=== PATIENT | female | born 1990 | race Caucasian/White ===

== ENCOUNTER 2024-11-30 08:49 | Emergency (ER) | payer BC ==
--- OUTSIDE RECORDS SUMMARY | 2024-11-30 08:54 | XMS REPORT | Continuity of Care Document ---
Author Name Unknown Address [address] [facility] [address] [place] [address] [facility] [place] Address [address] [facility]. [address] [place] [address] Care Team Providers Care Cs Associate Name Role Phone PCP, PATIENT DOES NOT HAVE A Primary Care Physic sheila Unavailable TATE LOYA Attending Clinician Unavailable TATE LOYA Attending Clinician Unavailable SHERYL REID Attending Clinician Unavailable Robina Castrejon NP Attending Clinician [phone] ADORE ROBISON Attending Clinician Unavailable Doctor Unassigned, Whitlash Attending Clinician U patricio Garcia, Ang - Db Attending Clinician Unavailable Tate Loya MD Attending Clinician [phone] Dolores Nagy Attending Clinician + [phone] Unknown, Attending Attending Clinician Unavailab DOLORES Perdue Attending Clinician Unavailab Nelida Felder MA Attending Clinician Unavailab MARILIA De La Vega Attending Clinician Unavailable Marilia Mcclain PA-C Attending Clinician [phone] Unknown, Attending Attending Clinician Unavailab le Doctor Unassigned, Whitlash Attending Clinician U patricio Nurse, [facility] Attending Clinician Un available Mandie Fontana MD Attending Clinician [phone] Fonpamela SINHA CRNA R Attending Clinician [phone] Only, Adc Test Attending Clinician Unavailable Salina Fields MD Attending Clinician [phone] SALINA FIELDS Attending Clinician Unavailabl e 2, Adc Lab Attending Clinician Unavailable Ultrasound, Adc Mfm Attending Clinician Lito Atkinson MD, Escobar Attending Clinician + Ultrasound, Ang-Mfm Attending Clinician Lito Brown MD, Sophia Bradford Attending Clinician [phone] [email or web address] Attending Clinician Lito drake LOYA, TATE CAM Admitting Clinician Unavailable LOYA, TATE CAM Admitting Clinician Unavailable [email or web address] Admitting Clinician Lito drake Payers Payer Name Policy Type Policy Number Effective Date Expirati on Date Source BLUE ESSENTIALS O [id number] 00:00:[place] [id number] 2019 00:00:00 Problems Condition Name Condition Details Condition Category Status Onset Date Resolution Date Last Treatment Date Treating Clinician Comments Source Gastroesop hageal reflux disease, unspecifie d whether esophagiti s present Gastroesop hageal reflux disease, unspecifie d whether esophagiti s present Disease Active 2020-04 00:00: 00 [facility] Generalize d anxiety disorder Generalize d anxiety disorder Disease Active 9- 00:00: 00 [facility] Obesity (BMI 30-39.9) Obesity (BMI 30-39.9) Disease Active 5-13 00:00: 00 [facility] Non-intrac table vomiting with nausea, unspecifie d vomiting type Non-intrac table vomiting with nausea, unspecifie d vomiting type Diagnosis Active [facility] Sinus problem Sinus problem Problem Active [facility] Diarrhea, unspecifie d type Diarrhea, unspecifie d type Diagnosis Active Common [facility] Depression Depression Problem Active C ommon [facility] Wheezing Wheezing Problem Active Commo n [facility] Anxiety Anxiety Problem Active [facility] Migraines Migraines Problem Active Com mon [facility] Irritable bowel Irritable bowel Problem Active [facility] Seasonal allergies Seasonal allergies Problem Active [facility] Reflux Reflux Problem Active [facility] Abdominal pain, unspecifie d abdominal location Abdominal pain, unspecifie d abdominal location Diagnosis Active [facility] Fever blister Fever blister Diagnosis Active [facility] Depression with anxiety Depression with anxiety Problem Active [facility] hypertensi on hypertensi on Disease Resolve d 2021-0 1-06 00:00: 00 2021-05-26 00:00:00 2021-05-26 13:44:06 [facility] Liveborn , of monson , born in hospital by vaginal delivery Liveborn infant, of monson , born in hospital by vaginal delivery Disease Resolve d 2021-0 1-05 00:00: 00 2021-05-26 00:00:00 2021-05-26 13:44:06 [facility] 39 weeks gestation of 39 weeks gestation of Disease Resolve d 0 1-04 00:00: 00 2021-05-26 00:00:00 2021-05-26 13:44:06 [facility] Encounter for planned induction of labor Encounter for planned induction of labor Disease Resolve d 0 1-04 00:00: 00 2021-05-26 00:00:00 2021-05-26 13:44:06 [facility] Supervisio n of high risk in third trimester Supervisio n of high risk in third trimester Disease Resolve d 2020-0 6-03 00:00: 00 2021-05-26 00:00:00 2021-05-26 13:44:06 [facility] Nausea and vomiting during Nausea and vomiting during Disease Resolve d 2020-0 6-03 00:00: 00 2021-05-26 00:00:00 2021-05-26 13:44:06 [facility] examinatio n or test, positive result examinatio n or test, positive result Disease Resolve d 2020-0 5-13 00:00: 00 2020-09-18 00:00:00 2020-09-18 17:50:07 [facility] with inconclusi ve viability, single or unspecifie d fetus with inconclusi ve viability, single or unspecifie d fetus Disease Resolve d 5-13 00:00: 00 2020-09-18 00:00:00 2020-09-18 17:50:05 [facility] Allergies, Adverse Reactions, Alerts Allergy Name Allergy Type Status Severity Reaction(s) Onset Date Inactive Date Treating Clinician Comments Source NO KNOWN ALLERGIE S Drug Class Active [facility] Social History Social Habit Start Date Stop Date Quantity Comments Source History of tobacco use Cigarette Smoker [facility] ASSERTION Not [facility] Alcoholic beverage intake 2024-11-17 00:00:00 2024-11-17 00:00:00 Ex-drinker (finding) [facility] Tobacco use and exposure 2024-08-31 00:00:00 2024-08-31 00:00:00 Former smokeless tobacco user [facility] Alcohol intake 2023-06-23 00:00:00 2023-06-23 00:00:00 Ex-drinker (finding) [facility] Exposure to SARS-CoV-2 (event) 2021-05-31 00:00:00 2021-06-30 13:14:00 Not sure [facility] History of Social function 2021-06-23 00:00:00 2021-06-23 00:00:00 [facility] Sex assigned at 1990 00:00:00 1990 00:00:00 [facility] Smoking Status Start Date Stop Date Source Occasional tobacco smoker 2024-08-31 00:00:00 [facility] Smokes tobacco daily 2020-08-28 00:00:00 [facility] Medications Ordered Medication Name Filled Medication Name Start Date Stop Date Current Medication? Ordering Clinician Indication Dosage Frequency Signature (SIG) Comments Components Source phenylephri ne 0.25 % suppository 11-17 00:00: 00 Yes [id number] 1{suppo sitory} Insert 1 Suppositor y into rectum in the morning and 1 Suppositor y in the evening. [facility] phenylephri ne 0.25 % suppository 8-02 00:00: 00 Yes [id number] 1{suppo sitory} Insert 1 Suppositor y into rectum in the morning and 1 Suppositor y in the evening. [facility] etonogestre l-ethinyl estradiol 0.12-0.015 mg/24 hr vaginal insert 6-06 00:00: 00 Yes [id number] 1{each} Insert 1 Each into vagina once every month. Insert vaginally and leave in place for 3 consecutiv e weeks, then remove for 1 week. [facility] levocetiriz ine 5 mg tablet 06-14 00:00: 00 08-31 00:00 :00 No [id number] 5mg Take 1 tablet by mouth every evening. [facility] azelastine 137 mcg (0.1 %) nasal spray 06-14 00:00: 00 08-31 00:00 :00 No [id number] 1{spray } Use 1 Howe in each nostril in the morning and 1 Howe in the evening. Use in each nostril as directed [facility] albuterol 90 mcg/actuati on inhaler 06-14 00:00: 00 06-25 04:59 :00 No [id number] 2{puff} Inhale 2 Puffs every 6 (six) hours as needed for Wheezing or Shortness of Breath for up to 10 days. [facility] benzonatate 100 mg capsule 06-14 00:00: 00 06-22 05:59 :00 No [id number] 100mg Take 1 capsule by mouth 3 (three) times daily as needed for Cough for up to 7 days. [facility] dexamethaso ne sod phos PF injection 10 mg 06-22 18:30: 00 06-22 17:35 :00 No [id number] 10mg [facility] fluticasone propionate 50 mcg/actuati on nasal spray 06-22 00:00: 00 08-31 00:00 :00 No [id number] 2{spray } Use 2 Sprays in each nostril in the morning. [facility] azelastine 137 mcg (0.1 %) nasal spray 06-22 00:00: 00 08-31 00:00 :00 No [id number] 1{spray } Use 1 Howe in each nostril in the morning and 1 Howe in the evening. Use in each nostril as directed [facility] bromphenira mine-pseudo ephedrine-D M (BROMFED DM) 2-30-10 mg/5 mL syrup 06-22 00:00: 00 08-31 00:00 :00 No [id number] 5mL Take 5 mL by mouth 3 (three) times daily as needed for Cough or Cold symptoms. [facility] albuterol 90 mcg/actuati on inhaler 06-22 00:00: 00 08-31 00:00 :00 No [id number] 2{puff} Inhale 2 Puffs every 6 (six) hours as needed for Wheezing. [facility] cetirizine 10 mg tablet 06-22 00:00: 00 08-31 00:00 :00 No [id number] 10mg Take 1 tablet by mouth in the morning. [facility] amoxicillin -clavulanat e (AUGMENTIN) 875-125 mg per tablet 06-22 00:00: 00 08-31 00:00 :00 No [id number] 1{tbl} Take 1 tablet by mouth in the morning and 1 tablet in the evening. [facility] valACYclovi r (VALTREX) 1 gram tablet 06-22 00:00: 00 06-30 04:59 :00 No [id number] 1g Take 1 tablet by mouth in the morning and 1 tablet at noon and 1 tablet in the evening. Do all this for 7 days. [facility] medroxyPROG ESTERone (DEPO-PROVE RA) syringe 150 mg 09-22 21:15: 00 09-22 20:03 :00 No [id number] 150mg [facility] medroxyPROG ESTERone (DEPO-PROVE RA) syringe 150 mg 06-30 20:00: 00 06-30 18:52 :00 No [id number] 150mg [facility] bismuth subsalicyla te (BISMUTH ORAL) 06-30 13:26: 08 08-31 00:00 :00 No Take by mouth. [facility] SERTraline (ZOLOFT) 100 mg tablet 05-26 00:00: 00 08-31 00:00 :00 No [id number] 100mg Take 1 tablet by mouth daily. [facility] OMEPRAZOLE ORAL 04-23 14:13: 43 Yes Take by mouth. [facility] vitamin w/FA tablet 04-23 00:00: 00 Yes [id number] 1{tbl} Take 1 tablet by mouth daily. [facility] vitamin w/FA tablet 04-23 00:00: 00 08-31 00:00 :00 No [id number] 1{tbl} Take 1 tablet by mouth daily. [facility] docusate calcium 240 mg capsule 04-23 00:00: 00 08-31 00:00 :00 No [id number] 240mg Take 1 capsule by mouth once daily as needed for Constipati on. [facility] ferrous sulfate 325 mg (65 mg iron) tablet 04-23 00:00: 00 08-31 00:00 :00 No [id number] 325mg Take 1 tablet by mouth 2 (two) times daily. [facility] ibuprofen 600 mg tablet 04-23 00:00: 00 08-31 00:00 :00 No [id number] 600mg Take 1 tablet by mouth every 6 (six) hours as needed (Pain). Take with food or milk. [facility] proMETHazin e 25 mg tablet 2020-04 2 00:00: 00 08-31 00:00 :00 No [id number] 25mg Take 1 tablet by mouth every 4 (four) hours as needed for Nausea and Vomiting (N/V). [facility] doxylamine- pyridoxine, vit B6, (DICLEGIS) 10-10 mg per tablet 2020-04 2-21 00:00: 00 08-31 00:00 :00 No [id number] 1{tbl} Take 1 tablet by mouth SEE-INSTRU CTIONS. [facility] ity [facility] Blood Sugar Diagnostic, Disc Strp 2020-04 0-13 00:00: 00 Yes Use as directed [facility] Blood-Gluco se Meter Kit 2020-04 0- 00:00: 00 Yes Use as directed [facility] lancets 28 gauge Misc 2020-04 0-13 00:00: 00 Yes Use as directed [facility] Blood Sugar Diagnostic, Disc Strp 2020-04 0-13 00:00: 00 08-31 00:00 :00 No Use as directed [facility] Alcohol Swabs PadM 2020-04 0-13 00:00: 00 08-31 00:00 :00 No Apply to area(s) 4 (four) times daily. [facility] Blood-Gluco se Meter Kit 2020-04 0-13 00:00: 00 08-31 00:00 :00 No Use as directed [facility] lancets 28 gauge Misc 2020-04 0-13 00:00: 00 08-31 00:00 :00 No Use as directed [facility] SERTraline 100 mg tablet 9-23 00:00: 00 08-31 00:00 :00 No [id number] 100mg Take 1 tablet by mouth daily. [facility] proMETHazin e 25 mg tablet 7-29 00:00: 00 04-14 00:00 :00 No [id number] 25mg Take 1 tablet by mouth every 4 (four) hours as needed for Nausea and Vomiting (N/V). [facility] famotidine 20 mg tablet 6-06 00:00: 00 08-31 00:00 :00 No [facility] proMETHazin e 25 mg tablet 6 00:00: 00 11-13 00:00 :00 No [facility] doxylamine- pyridoxine, vit B6, (DICLEGIS) 10-10 mg per tablet 6 00:00: 00 02-24 00:00 :00 No [id number] 1{tbl} Take 1 tablet by mouth SEE-INSTRU CTIONS. [facility] SERTraline 100 mg tablet 08-12 00:00: 00 01-08 00:00 :00 No 100mg Take 100 mg by mouth daily. [facility] Acyclovir Acyclovir 10-28 00:00: 00 Yes Mellissa Millender 1 tablet [facility] BusPIRone HCl BusPIRone HCl 10-28 00:00: 00 Yes Mellissa Millender 1 tablet as needed for anxiety [facility] Proventil HFA Proventil HFA 10-10 00:00: 00 Yes Mellissa Millender 2 puffs as needed for wheezing/s ob [facility] Dicyclomine HCl Dicyclomine HCl 10-10 00:00: 00 02-25 00:00 :00 No Mellissa Millender 1 tablet as needed for stomach pain [facility] Vitamin B12 Vitamin B12 Yes Mellissa Millender as directed [facility] ZyrTEC ZyrTEC Yes Mellissa Millender not defined [facility] Hyoscyamine Sulfate Hyoscyamine Sulfate Yes Mellissa Millender 1-2 tablets as needed [facility] Immunizations Ordered Immunization Name Filled Immunization Name Date Status Comments Source TDAP 2021-02-04 00:00:00 Completed [facility] Rho (d) Immune Globulin 2021-02-04 00:00:00 Completed [facility] TDAP 2021-02-04 00:00:00 Completed [facility] Rho (d) Immune Globulin 2021-02-04 00:00:00 Completed [facility] TDAP 2021-02-04 00:00:00 Completed [facility] Rho (d) Immune Globulin 2021-02-04 00:00:00 Completed [facility] TDAP 2021-02-04 00:00:00 Completed [facility] Rho (d) Immune Globulin 2021-02-04 00:00:00 Completed [facility] TDAP Unknown Completed [facility] Rho (d) Immune Globulin Unknown Completed [facility] TDAP Unknown Completed [facility] Rho (d) Immune Globulin Unknown Completed [facility] TDAP Unknown Completed [facility] Rho (d) Immune Globulin Unknown Completed [facility] Vital Signs Vital Name Observation Time Observation Value Comments S ource Systolic blood pressure 2024-11-29 15:57:00 133 mm[Hg] [facility] Diastolic blood pressure 2024-11-29 15:57:00 102 mm[Hg] [facility] Heart rate 2024-11-29 15:57:00 83 /min [facility] Body temperature 2024-11-29 15:57:00 36.94 Leslie [facility] Respiratory rate 2024-11-29 15:57:00 18 /min [facility] Body height 2024-11-29 15:57:[address] [facility] Body weight 2024-11-29 15:57:[address] [facility] BMI 2024-11-29 15:57:00 35.88 kg/m2 [facility] Oxygen saturation in Arterial blood by Pulse oximetry 2024-11-29 15:57:00 99 /min [facility] Systolic blood pressure 2024-11-17 17:59:00 107 mm[Hg] [facility] Diastolic blood pressure 2024-11-17 17:59:00 55 mm[Hg] [facility] Heart rate 2024-11-17 17:59:00 77 /min [facility] Body temperature 2024-11-17 17:59:00 37.28 Leslie [facility] Respiratory rate 2024-11-17 17:59:00 14 /min [facility] Body height 2024-11-17 17:59:00 175.3 cm [facility] Body weight 2024-11-17 17:59:[address] [facility] BMI 2024-11-17 17:59:00 35.88 kg/m2 [facility] Oxygen saturation in Arterial blood by Pulse oximetry 2024-11-17 17:59:00 98 /min [facility] Systolic blood pressure 2024-09-21 15:29:00 120 mm[Hg] [facility] Diastolic blood pressure 2024-09-21 15:29:00 84 mm[Hg] [facility] Heart rate 2024-09-21 15:29:00 71 /min [facility] Respiratory rate 2024-09-21 15:29:00 18 /min [facility] Body height 2024-09-21 15:29:[address] [facility] Body weight 2024-09-21 15:29:[address] [facility] BMI 2024-09-21 15:29:00 36.03 kg/m2 [facility] Systolic blood pressure 2024-08-31 15:42:00 115 mm[Hg] [facility] Diastolic blood pressure 2024-08-31 15:42:00 76 mm[Hg] [facility] Heart rate 2024-08-31 15:42:00 88 /min [facility] Respiratory rate 2024-08-31 15:42:00 18 /min [facility] Body height 2024-08-31 15:42:00 175.3 cm [facility] Body weight 2024-08-31 15:42:[address] [facility] BMI 2024-08-31 15:42:00 36.17 kg/m2 [facility] Systolic blood pressure 2024-06-14 16:14:00 113 mm[Hg] [facility] Diastolic blood pressure 2024-06-14 16:14:00 78 mm[Hg] [facility] Heart rate 2024-06-14 16:14:00 85 /min [facility] Body temperature 2024-06-14 16:14:00 36.67 Leslie [facility] Respiratory rate 2024-06-14 16:14:00 15 /min [facility] Body height 2024-06-14 16:14:[address] [facility] Body weight 2024-06-14 16:14:[address] [facility] BMI 2024-06-14 16:14:00 36.52 kg/m2 [facility] Oxygen saturation in Arterial blood by Pulse oximetry 2024-06-14 16:14:00 98 /min [facility] Systolic blood pressure 2023-06-23 16:59:00 122 mm[Hg] [facility] Diastolic blood pressure 2023-06-23 16:59:00 82 mm[Hg] [facility] Heart rate 2023-06-23 16:59:00 75 /min [facility] Body temperature 2023-06-23 16:59:00 37.56 Leslie [facility] Respiratory rate 2023-06-23 16:59:00 17 /min [facility] Body weight 2023-06-23 16:59:[address] [facility] BMI 2023-06-23 16:59:00 35.00 kg/m2 [facility] Oxygen saturation in Arterial blood by Pulse oximetry 2023-06-23 16:59:00 98 /min [facility] Systolic blood pressure 2021-09-22 20:00:00 111 mm[Hg] [facility] Diastolic blood pressure 2021-09-22 20:00:00 77 mm[Hg] [facility] Heart rate 2021-09-22 20:00:00 76 /min [facility] Respiratory rate 2021-09-22 20:00:00 18 /min [facility] Body weight 2021-09-22 20:00:[address] [facility] BMI 2021-09-22 20:00:00 37.80 kg/m2 [facility] Systolic blood pressure 2021-06-30 18:24:00 126 mm[Hg] [facility] Diastolic blood pressure 2021-06-30 18:24:00 78 mm[Hg] [facility] Heart rate 2021-06-30 18:24:00 75 /min [facility] Body temperature 2021-06-30 18:24:00 36.56 Leslie [facility] Body weight 2021-06-30 18:24:[address] [facility] BMI 2021-06-30 18:24:00 35.03 kg/m2 [facility] Procedures Procedure Date / Time Performed Performing Clinician Source POCT TEST 2024-09-21 00:00:00 Tate Loya [facility] US PELVIS COMPLETE WITH TRANSVAGINAL 2024-09-07 19:12:35 Tate Loya [facility] ASSIGNMENT OF BENEFITS 2023-06-23 16:45:45 Docto r Unassigned, Whitlash [facility] AUTHORIZATION FOR RELEASE OF PHI 2023-01-26 05:01:00 Doctor Unassigned, Whitlash [facility] CONSENT FOR CONTRACEPTION 2021-06-30 05:01:00 Doctor Unassigned, Whitlash [facility] POCT TEST 2021-06-30 00:00:00 Lai Mcclain [facility] PATIENT QUESTIONNAIRE 2021-02-04 05:01:00 Doctor Unassigned, Whitlash [facility] Encounters Start Date/Time End Date/Time Encounter Type Admission Type Attending Clinicians Care Facility Care Department Encounter ID Source 2025-09-06 09:30:00 2025-09-06 09:30:00 Outpatient TATE NAIR VIEN [facility] [id number] [facility] 2024-12-28 14:30:00 2024-12-28 14:30:00 Outpatient TATE NAIR VIEN [facility] [id number] [facility] 2024-11-30 14:00:00 2024-11-30 14:00:00 Outpatient SHERYL GONZALEZ [facility] [id number] [facility] 2024-11-29 10:58:00 2024-11-29 13:04:00 Emergency X Robina Castrejon [facility] 1.20.114 [id number] [id number] [id number] [facility] 2024-11-17 13:00:00 2024-11-17 14:00:48 Urgent Care R ADORE ROBISON [facility] [facility] 1.114 350.1.13.10 [id number] [id number] [facility] 2024-10-02 00:00:00 2024-11-03 18:25:49 Patient Secure Msg Doctor Unassigned, Whitlash Doctor Unassigned, Whitlash [facility] 1.0.114 350.1.13.10 [id number] [id number] [facility] 2024-09-21 10:00:00 2024-09-21 10:49:24 Office Visit TATE NAIR VIEN [facility] 1..114 350.1.13.10 [id number] [id number] [facility] 2024-09-07 13:08:40 2024-09-07 23:59:00 Hospital Encounter R TATE LOYA VIEN [facility] 1.2.114 350.1.13.10 4.2.7.2.686 [id number] [facility] 2024-08-31 11:45:00 2024-08-31 12:00:00 Technical Rep Visit R Jose, Ang - Tate De Souza, Nain Fine [facility] 1..114 350.1.13.10 [id number] [id number] [facility] 2024-08-31 10:30:00 2024-08-31 11:17:55 Office Visit TATE NAIR VIEN [facility] [id number] 350.1.13.10 4.2.7.2.686 [id number] [facility] 2024-08-31 10:30:00 2024-08-31 10:30:00 Outpatient TATE NAIR TATE [facility] [id number] [facility] 2024-06-14 10:00:00 2024-06-14 10:20:00 Urgent Care Dolores Miranda, Attending [facility] [id number] 350.1.13.10 4.2.7.2.686 [id number] [facility] 2024-06-14 10:00:00 2024-06-14 10:00:00 Outpatient R DOLORES MIRANDA [facility] [id number] [facility] 2021-02-04 00:00:00 2024-06-02 02:52:48 Orders Only Nelida Vanegas Jessica L [facility] [facility] 1.840.114 350.1.13.10 4.2.7.2.686 [id number] 134 [id number] [facility] 2023-06-23 11:00:00 2023-06-23 11:37:07 Outpatient MARILIA HDZ [facility] [id number] [facility] 2023-06-23 11:00:00 2023-06-23 11:37:07 Urgent Care Marilia Mcclain Unknown, Attending [facility] 1.840.114 350.1.13.10 4.2.7.2.686 [id number] [facility] 2023-06-23 00:00:00 2023-06-23 00:00:00 Orders Only Doctor Unassigned, Whitlash [facility] 1..840.114 350.1.13.10 4.2.7.2.686 [id number] [facility] 2023-01-26 00:00:00 2023-01-26 00:00:00 Orders Only Doctor Unassigned, Whitlash [facility] 1.2.840.114 350.1.13.10 4.2.7.2.686 [id number] [facility] 2021-12-15 14:00:00 2021-12-15 14:00:00 Outpatient R [facility] [id number] [facility] 2021-11-23 13:30:00 2021-11-23 13:30:00 Outpatient R [facility] [id number] [facility] 2021-11-23 13:30:00 2021-11-23 13:30:00 Outpatient R [facility] [id number] [facility] 2021-09-22 14:00:00 2021-09-22 14:15:00 Nurse Visit Nurse[facility] Tate Loya [facility] 1..840.114 350.1.13.10 4.2.7.2.686 [id number] 134 [id number] [facility] 2021-09-22 14:00:00 2021-09-22 14:00:00 Outpatient R [facility] [id number] [facility] 2021-09-22 14:00:00 2021-09-22 14:00:00 Outpatient R TATE LOYA [facility] [id number] [facility] 2021-06-30 13:15:00 2021-06-30 13:51:51 Outpatient R MARILIA MCCLAIN [facility] [id number] [facility] 2021-06-30 13:15:00 2021-06-30 13:51:51 Office Visit Marilia Mcclain [facility] 1.2.840.114 350.1.13.10 4.2.7.2.686 [id number] 134 [id number] [facility] 2021-06-30 00:00:00 2021-06-30 00:00:00 Orders Only Doctor Unassigned, Whitlash [facility] 1.2840.114 350.1.13.10 4.2.7.2.686 [id number] [id number] [facility] 2021-06-23 11:45:00 2021-06-23 12:00:00 [facility] 1.2.840.114 350.1.13.10 4.2.7.2.686 [id number] 134 [id number] [facility] 2021-06-23 11:45:00 2021-06-23 11:45:00 Outpatient R MARILIA MCCLAIN [facility] [id number] [facility] 2021-06-23 00:00:00 2021-06-23 00:00:00 Telephone Marilia Mcclain [facility] 1.2.840.114 350.1.13.10 4.2.7.2.686 [id number] 134 [id number] [facility] 2021-05-26 13:30:00 2021-05-26 14:06:20 Outpatient R MARILIA MCCLAIN [facility] [id number] [facility] 2021-05-26 13:30:00 2021-05-26 14:06:20 Routine Visit Marilia Mcclain [facility] 1.2.840.114 350.1.13.10 4.2.7.2.686 [id number] 134 [id number] [facility] 2021-04-21 11:34:00 2021-04-23 13:55:00 Inpatient P TATE LOYA [facility] [id number] [facility] 2021-04-21 11:34:00 2021-04-23 13:55:00 Hospital Encounter Tate Loya Shane [facility] 1.2.840.114 350.1.13.10 4.2.7.2.686 [id number] [facility] 2021-04-22 03:35:00 2021-04-22 12:22:00 Anesthesia Event Mandie Fontana [facility] 1.2.840.114 350.1.13.10 4.2.7.2.686 [id number] [facility] 2021-04-21 14:39:22 2021-04-21 14:39:22 Anesthesia Event Sudhir Zavala [facility] 1.2.840.114 350.1.13.10 4.2.7.2.686 [id number] [facility] 2021-04-20 13:15:00 2021-04-20 13:30:00 Laboratory Only Only, Adc Test Salina Fields [facility] 1.2.840.114 350.1.13.10 4.2.7.2.686 [id number] [facility] 2021-04-20 13:15:00 2021-04-20 13:15:00 Outpatient R SALINA FIELDS [facility] [id number] [facility] 2021-04-15 13:15:00 2021-04-15 13:15:00 Outpatient R TATE LOYA [facility] [id number] [facility] 2021-04-14 13:15:00 2021-04-14 13:52:59 Outpatient R TATE LOYA [facility] [id number] [facility] 2021-04-14 13:15:00 2021-04-14 13:52:59 Routine Visit Tate Loya [facility] 1.2.114 350.1.13.10 4.2.7.2.686 [id number] 134 [id number] [facility] 2021-04-07 15:45:00 2021-04-07 15:45:00 Technical Rep Visit 2, Adc Lab [facility] 1.2.114 350.1.13.10 4.2.7.2.686 [id number] [facility] 2021-04-07 14:45:00 2021-04-07 15:32:36 Outpatient R [facility] [id number] [facility] 2021-04-07 14:45:00 2021-04-07 15:32:36 Routine Visit Marilia Mcclain [facility] 1.2.114 350.1.13.10 4.2.7.2.686 [id number] 134 [id number] [facility] 2021-04-07 14:45:00 2021-04-07 14:45:00 Outpatient R [facility] [id number] [facility] 2021-03-26 00:00:00 2021-03-26 00:00:00 Telephone [facility] 1.284.114 350.1.13.10 4.2.7.2.686 [id number] 134 [id number] [facility] 2021-03-25 00:00:00 2021-03-25 00:00:00 Patient Secure Msg Tate Loya [facility] 1.2.840.114 350.1.13.10 4.2.7.2.686 [id number] 134 [id number] [facility] 2021-03-24 16:05:13 2021-03-24 17:06:05 Routine Visit [facility] 1.2840.114 350.1.13.10 4.2.7.2.686 [id number] [facility] 2021-03-24 16:00:00 2021-03-24 17:06:05 Outpatient R SHALINI TATE [facility] [id number] [facility] 2021-03-10 11:31:40 2021-03-10 12:00:46 Routine Visit Marilia Mcclain [facility] BUILDING 1.2840.114 350.1.13.10 4.2.7.2.686 [id number] 134 [id number] [facility] 2021-03-10 11:15:00 2021-03-10 12:00:46 [facility] [id number] [facility] 2021-02-24 14:00:00 2021-02-24 15:27:19 Outpatient R TATE LOYA [facility] [id number] [facility] 2021-02-24 13:46:49 2021-02-24 15:27:19 Routine Visit Tate Loya [facility] BUILDING 1.284.114 350.1.13.10 4.2.7.2.686 [id number] 134 [id number] [facility] 2021-02-24 12:49:53 2021-02-24 13:34:53 Technical Rep Visit Ultrasound, Adc MfLuz Omer [facility] 1.2.840.114 350.1.13.10 4.2.7.2.686 [id number] 134 [id number] [facility] 2021-02-05 15:30:00 2021-02-05 15:30:00 Outpatient R [facility] [id number] [facility] 2021-02-04 11:21:11 2021-02-04 12:24:54 Routine Visit Marilia Mcclain [facility] 1.2.840.114 350.1.13.10 4.2.7.2.686 [id number] 134 [id number] [facility] 2021-02-04 11:30:00 2021-02-04 11:30:00 Outpatient R [facility] [id number] [facility] 2021-01-27 00:00:00 2021-01-27 00:00:00 Case Management Shalini Tate [facility] 1.2.840.114 350.1.13.10 4.2.7.2.686 [id number] 134 [id number] [facility] 2021-01-27 00:00:00 2021-01-27 00:00:00 Patient Secure Msg Doctor Unassigned, Whitlash [facility] 1.2.840.114 350.1.13.10 4.2.7.2.686 [id number] 134 [id number] [facility] 2021-01-26 08:46:42 2021-01-26 09:01:42 Technical Rep Visit 2, Adc Lab Shalini Tate [facility] 1.2.840.114 350.1.13.10 4.2.7.2.686 [id number] [facility] 2021-01-26 08:45:00 2021-01-26 08:45:00 Outpatient R TATE LOYA [facility] [id number] [facility] 2021-01-13 00:00:00 2021-01-13 00:00:00 Patient Secure Msg Doctor Unassigned, Whitlash [facility] 1.2.840.114 350.1.13.10 4.2.7.2.686 [id number] [facility] 2021-01-08 12:46:12 2021-01-08 13:01:12 Routine Visit Tate Loya [facility] 1.2.840.114 350.1.13.10 4.2.7.2.686 [id number] 134 [id number] [facility] 2021-01-08 13:00:00 2021-01-08 13:00:00 Outpatient R TATE LOYA [facility] [id number] [facility] 2021-01-07 00:00:00 2021-01-07 00:00:00 Patient Secure Msg Tate Loya [facility] BUILDING 1.2.840.114 350.1.13.10 4.2.7.2.686 [id number] 134 [id number] [facility] 2020-12-11 13:35:00 2020-12-11 13:50:00 Routine Visit Marilia Mcclain [facility] 1.2.840.114 350.1.13.10 4.2.7.2.686 [id number] 134 [id number] [facility] 2020-12-11 09:01:42 2020-12-11 09:16:42 Technical Rep Visit 2, Adc Lab Tate Loya [facility] 1.2.840.114 350.1.13.10 4.2.7.2.686 [id number] [facility] 2020-12-11 09:00:00 2020-12-11 09:00:00 Outpatient R [facility] [id number] [facility] 2020-12-10 14:56:42 2020-12-10 15:56:42 Technical Rep Visit Ultrasound, Sophia Freed [facility] 1.2840.114 350.1.13.10 4.2.7.2.686 [id number] [facility] 2020-12-10 14:45:00 2020-12-10 14:45:00 Outpatient P [facility] [id number] [facility] 2020-12-02 00:00:00 2020-12-02 00:00:00 Orders Only Doctor Unassigned, Whitlash [facility] 1.20.114 350.1.13.10 4.2.7.2.686 [id number] [facility] 2020-11-28 00:00:00 2020-11-28 00:00:00 Patient Secure Msg Tate Loya [facility] BUILDING 1.2.114 350.1.13.10 4.2.7.2.686 [id number] 134 [id number] [facility] 2020-11-14 00:00:00 2020-11-14 00:00:00 Patient Secure Msg Tate Loya [facility] BUILDING 1.2.114 350.1.13.10 4.2.7.2.686 [id number] 134 [id number] [facility] 2020-11-13 14:40:23 2020-11-13 14:55:23 Technical Rep Visit 2, Adc Lab Tate Loya [facility] Building 1.2.114 350.1.13.10 4.2.7.2.686 [id number] [facility] 2020-11-13 12:58:26 2020-11-13 14:12:52 Routine Visit Tate Loya [facility] 1.20.114 350.1.13.10 4.2.7.2.686 [id number] 134 [id number] [facility] 2020-11-13 13:00:00 2020-11-13 13:00:00 Outpatient R TATE LOYA [facility] [id number] [facility] 2020-10-30 00:00:00 2020-10-30 00:00:00 Patient Secure Msg Tate Loya [facility] NAL BUILDING 1.2.840.114 350.1.13.10 4.2.7.2.686 [id number] 134 [id number] [facility] 2020-10-21 11:03:57 2020-10-21 12:40:53 Routine Visit Tate Loya [facility] 1.2.840.114 350.1.13.10 4.2.7.2.686 [id number] 134 [id number] [facility] 2020-10-21 11:00:00 2020-10-21 11:00:00 Outpatient R TATE LOYA [facility] [id number] [facility] 2020-10-17 00:00:00 2020-10-17 00:00:00 Case Management Tate Loya [facility] Building 1.2.840.114 350.1.13.10 4.2.7.2.686 [id number] 134 [id number] [facility] 2020-10-16 14:28:50 2020-10-16 15:21:38 Routine Visit Marilia Mcclain [facility] 1.2.840.114 350.1.13.10 4.2.7.2.686 [id number] 134 [id number] [facility] 2020-10-16 14:15:07 2020-10-16 14:30:07 Technical Rep Visit 2, Adc Lab Marilia Mcclain [facility] 1.2.840.114 350.1.13.10 4.2.7.2.686 [id number] [facility] 2020-10-16 14:00:00 2020-10-16 14:00:00 Outpatient R MARILIA MCCLAIN [facility] [id number] [facility] 2020-10-02 00:00:00 2020-10-02 00:00:00 Orders Only Doctor Unassigned, Whitlash [facility] 1.2.840.114 350.1.13.10 4.2.7.2.686 [id number] [facility] 2020-09-18 13:14:29 2020-09-18 14:23:19 Routine Visit Tate Loya [facility] Building 1.2.840.114 350.1.13.10 4.2.7.2.686 [id number] 134 [id number] [facility] 2020-09-18 13:15:00 2020-09-18 13:15:00 Outpatient R SHALINI [facility] [id number] [facility] 2020-09-18 00:00:00 2020-09-18 00:00:00 Orders Only Doctor Unassigned, Whitlash [facility] 1.2840.114 350.1.13.10 4.2.7.2.686 [id number] [facility] 2020-08-28 09:55:07 2020-08-28 11:05:43 Initial Visit Tate Loya [facility] 1.2.840.114 350.1.13.10 4.2.7.2.686 [id number] 134 [id number] [facility] 2020-08-28 10:15:00 2020-08-28 10:15:00 [id number] 2020-07-30 00:00:00 2020-07-30 00:00:00 Outpatient [facility] [id number] [facility] 2017-10-28 11:17:00 2017-10-28 11:17:00 Outpatient [facility] [id number] [facility] 2017-10-28 10:45:00 2017-10-28 10:45:00 Outpatient [facility] [id number] [facility] 2017-10-18 11:11:00 2017-10-18 11:11:00 Outpatient [facility] [id number] [facility] 2017-10-13 14:29:00 2017-10-13 14:29:00 Outpatient [facility] [id number] [facility] 2017-10-10 10:45:00 2017-10-10 10:45:00 Outpatient [facility] [id number] [facility] Results Test Description Test Time Test Comments Results Result Co mments Source [facility] Pelvis complete with [id number] 03:45:55EXAM: US PELVIS COMPLETE WITH TRANSVAGINAL HISTORY: 34 years-old Female; Provided indication: regular heavy menses . LMP = 08/20/2024 TECHNIQUE: Transabdominal and transvaginal ultrasound imaging and colorDoppler evaluation of the pelvis was performed. Livestock Agent images wereobtained for the record. COMPARISON: None FINDINGS: Uterus: The uterus measures 7.1 x 4.0 x 4.7 cm. No focal uterine lesion is seen.Nabothian cysts are present at the cervix.The endometrium is 1.2 cm thick. Right Adnexa:Ovary: The right ovary measures 2.9 x 2.0 x 3.3 cm with a volume of 9.9 ml.No suspicious lesion is seen. Multiple small follicles are present. Left Adnexa:Ovary: The left ovary measures 3.6 x 2.2 x 2.7 cm with a volume of 11.0 ml.No suspicious lesion is seen. Multiple small follicles are present. Acorpus luteum is noted. Cul-de-sac: A small volume of free fluid is present[facility]* Test Item Value Reference Range Interpretation Comme nts POCT PREG (test code = 1605) Negative On board controls acceptable with C Line (test code = 3574) Yes POCT PREG LOT # (test code = 3575) POCT PREG TEST DATE ( test code = 3576) [facility] Notes Date/Time Note Provider Source 2024-11-29 13:03:53 Called to room. Patient eloped. T [facility] 2024-11-29 12:15:02 Provider performed rectal exam with RN present. T Daljit Whitten RN [facility] 2024-11-29 10:55:04 Patient to ED for severe constipation per patient. History of SBO, gastritis, and manually had to remove her own stool. Was seen by Urgent care on 11/17 but just not feeling better. Pain to rectum and is concerned of rectal tear. T [facility] 2024-08-31 11:45:00 Images from the original note were not included. Venipuncture collection performed by clean technique on the left anticubitus. Total of 1 attempts were made. Slight pressure and a bandage/dressing were applied to the site(s). The patient experienced no complications. The following specimens were processed according to instructions and sent to [facility] laboratories per lab order on 08/31/2024 : LT BLUE SST 3 RED LAV 1 PPT DK GREEN (LiHep) DK GREEN (SodH) MARTEL DK BLUE (K2) DK BLUE (S) ACD Blood Culture NIPT/NTD [facility]
[2024-11-30 09:24] LABS: Absolute Lymphocytes (CBC) 2.0 K/uL (0.7-4.9); Hematocrit 37.6 % (36.0-45.0); Hemoglobin 13.3 g/dL (12.0-15.0); MCH 33.7 pg (27.0-35.0); MCHC 35.4 g/dL (32.0-36.0); MCV 95.1 fL (80-100); MPV 8.5 fL (7.6-11.3); Nucleated RBC Absolute Count 0.0 (0-0); Nucleated Red Blood Cells % 0.0 % (0-0); RBC Red Blood Cell Count 3.95 M/uL (3.86-4.86); White Blood Count 7.60 thou/uL (4.3-10.9)
[2024-11-30] MEDS ORDERED: NA CHLORIDE 0.9% 1,000 ML ONE (09:27)
[2024-11-30 09:44] LABS: Albumin 3.0 g/dL (3.4-5.0); Albumin/Globulin Ratio 0.8 (1.1-1.8); Alkaline Phosphatase 53 U/L (45-117); Anion Gap 6.1 mEq/L (5.0-15.0); BUN Blood Urea Nitrogen 8 mg/dL (7-18); Globulin 3.8 g/dL (2.3-3.5); Glucose Level 88 mg/dL (74-106)
[2024-11-30 09:47] LABS: ALT/SGPT < 14 U/L (13-56); AST/SGOT 12 U/L (15-37); Potassium 4.1 mEq/L (3.5-5.1)
[2024-11-30 09:49] LABS: PT Prothrombin Time 13.5 SECONDS (10-13.0); Protime INR 1.2
--- NOTE | 2024-11-30 10:38 | EDPHYS ---
Physician Documentation [facility] Name: Nicole López Age: 34 yrs Sex: Female : 1990 Arrival Date: 11/30/2024 Time: 08:49 Bed 8 Private MD: LITO Physician Dallas Mccoy HPI: 11/30 10:33 This 34 yrs old Female presents to ER via Ambulatory with complaints of vy Rectal Bleeding, Rectal Pain, Hemorrhoids. 10:33 The patient presents to the emergency department with bleeding from the rectum/anus, vy pain in the rectal area. Onset: The symptoms/episode began/occurred 2 day(s) ago. Context: the patient has no known special context relating to the rectal area complaint(s). Modifying factors: The symptoms are alleviated by cool compress, remaining still, sitz baths, The symptoms are aggravated by bowel movement. Associate signs and symptoms: The patient has no apparent associated signs or symptoms. The patient has experienced similar episodes in the past, a few times. 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 - Infectious Disease History:: Denies. - Social history:: Smoking status: Patient reports the use of cigarette tobacco products, smokes one-half pack cigarettes per day. - Family history:: not pertinent. ROS: 10:33 Constitutional: Negative for fever, chills, and weight loss, Eyes: Negative for injury, vy pain, redness, and discharge, ENT: Negative for injury, pain, and discharge, Neck: Negative for injury, pain, and swelling, Cardiovascular: Negative for chest pain, palpitations, and edema, Respiratory: Negative for shortness of breath, cough, wheezing, and pleuritic chest pain, Back: Negative for injury and pain, : Negative for injury, bleeding, discharge, and swelling, MS/Extremity: Negative for injury and deformity, Skin: Negative for injury, rash, and discoloration, Neuro: Negative for headache, weakness, numbness, tingling, and seizure, 10:33 Abdomen/GI: Positive for constipation, rectal bleeding, Exam: 10:34 Constitutional: This is a well developed, well nourished patient who is awake, alert, vy and in no acute distress. Head/Face: Normocephalic, atraumatic. Eyes: Pupils equal round and reactive to light, extra-ocular motions intact. Lids and lashes normal. Conjunctiva and sclera are non-icteric and not injected. Cornea within normal limits. Periorbital areas with no swelling, redness, or edema. ENT: Nares patent. No nasal discharge, no septal abnormalities noted. Tympanic membranes are normal and external auditory canals are clear. Oropharynx with no redness, swelling, or masses, exudates, or evidence of obstruction, uvula midline. Mucous membranes moist. Neck: Trachea midline, no thyromegaly or masses palpated, and no cervical lymphadenopathy. Supple, full range of motion without nuchal rigidity, or vertebral point tenderness. No Meningismus. Chest/axilla: Normal chest wall appearance and motion. Nontender with no deformity. No lesions are appreciated. Cardiovascular: Regular rate and rhythm with a normal S1 and S2. No gallops, murmurs, or rubs. Normal PMI, no JVD. No pulse deficits. Respiratory: Lungs have equal breath sounds bilaterally, clear to auscultation and percussion. No rales, rhonchi or wheezes noted. No increased work of breathing, no retractions or nasal flaring. Abdomen/GI: Soft, non-tender, with normal bowel sounds. No distension or tympany. No guarding or rebound. No evidence of tenderness throughout. Back: No spinal tenderness. No costovertebral tenderness. Full range of motion. Skin: Warm, dry with normal turgor. Normal color with no rashes, no lesions, and no evidence of cellulitis. MS/ Extremity: Pulses equal, no cyanosis. Neurovascular intact. Full, normal range of motion., bilateral aka Neuro: Awake and alert, GCS 15, oriented to person, place, time, and situation. Cranial nerves II-XII grossly intact. Motor strength 5/5 in all extremities. Sensory grossly intact. Cerebellar exam normal. Normal gait. Psych: Awake, alert, with orientation to person, place and time. Behavior, mood, and affect are within normal limits. Vital Signs: 09:11 BP 139 / 82; Pulse 82; Resp 17; Temp 98.3; Pulse Ox 96% ; Weight 111.13 kg; Height 5 ll1 ft. 9 in. ; Pain 12/26; 09:11 Body Mass Index 36.18 (111.13 kg, 175.26 cm) ll1 09:11 Pain Scale: Adult ll1 MDM: 08:54 Medical Screening Exam initiated vy 10:34 Differential diagnosis: hemorrhoids, fissure. Data reviewed: vital signs, nurses notes, vy lab test result(s), CBC, electrolytes, hepatic panel. Consideration of Admission/Observation Escalation of care including admission/observation considered. I considered the following discharge prescriptions or medication management in the emergency department Medications were administered in the Emergency Department. See MAR. Test considered but Not performed: CT: no ct ab/pel. Historians other than the Patient: pt well informed. Care significantly affected by the following chronic conditions: Obesity, migraines , stomach problems. 11/30 08:56 Order name: CBC with Diff; Complete Time: 09:54 [facility] 11/30 08:56 Order name: CMP; Complete Time: 09:54 [facility] 11/30 08:56 Order name: UA W/ Microscopic [facility] 11/30 08:56 Order name: PREGU [facility] 11/30 08:56 Order name: PT-INR; Complete Time: 09:54 [facility] Administered Medications: 09:39 Drug: NS 0.9% IV 1000 ml IV at 1000 ml once; to be given as a bolus over 60 minutes aa5 Route: IV; Rate: 1000 ml; Site: right antecubital; 11:31 Follow up: IV Status: Completed infusion; IV Intake: 1000ml ap3 11:31 Drug: Anusol-HC LA Suppository 25 mg 25 mg LA once Route: LA; ap3 11:34 Follow up: Response: Medication administered at discharge. ap3 Disposition Summary: 11/30/24 10:37 Discharge Ordered Notes: Location: Home vy Problem: new vy Symptoms: have improved vy Condition: Stable vy Diagnosis - GI Bleed/ Gastrointestinal hemorrhage, unspecified - lower stable vy - Other hemorrhoids - external , bleeding vy - Constipation vy - Constipation, unspecified vy Followup: vy - With: Private Physician - When: 2 - 3 days - Reason: Recheck today's complaints, Re-evaluation by your physician Followup: vy - With: Walter Rueda MD - When: 2 - 3 days - Reason: Recheck today's complaints, Re-evaluation by your physician Discharge Instructions: - Discharge Summary Sheet vy - Constipation, Adult vy - High-Fiber Eating Plan vy - Gastrointestinal Bleeding vy - Hemorrhoids vy - Rectal Bleeding vy - How to Take a Sitz Bath vy - Constipation, Adult, [id number] vy - Rectal Bleeding, [id number] vy - Lower Gastrointestinal Bleeding vy Forms: - Medication Reconciliation Form vy - Antibiotic Education vy - Prescription Opioid Use vy - Patient Portal Instructions vy - Leadership Thank You Letter vy - Work release form ap3 Prescriptions: - Miralax 17 gram Oral powder in packet - take 1 packet ORAL route daily as needed for constipation; 10 packet; Refills: vy 0, Product Selection Permitted - Colace 100 mg Oral Tablet - take 1 tablet ORAL route every 12 hours; 14 tablet; Refills: 0, Product vy Selection Permitted - Anusol-HC 25 mg Rectal suppository - insert 1 suppository RECTAL route every 12 hours As needed; 14 suppository; vy Refills: 0, Product Selection Permitted Signatures: Dispatcher [employer] EDMS Dallas Mccoy MD MD cha Calderon, Audri, RN RN aa5 Lety Elliott RN RN ap3 Hina Kwong, RN RN ll1 Mendoza Aguilar, LINUX ADMIN-C LINUX ADMIN-Cdr5 Sonia Collins, RN RN kb4 Corrections: (The following items were deleted from the chart) 08:57 08:57 PROTIME (+INR)+COAG.LAB.BRZ ordered. EDMS EDMS
--- NOTE | 2024-11-30 10:38 | ER ---
Nurse's Notes [facility] Name: Nicole López Age: 34 yrs Sex: Female : 1990 Arrival Date: 11/30/2024 Time: 08:49 Bed 8 Private MD: Diagnosis: GI Bleed/ Gastrointestinal hemorrhage, unspecified-lower stable;Other hemorrhoids-external , bleeding;Constipation;Constipation, unspecified Presentation: 11/30 09:11 Chief complaint: Patient states: Rectal pain and bleeding for 3 days. No fever or ll1 N/V/D. Coronavirus screen: Client denies travel out of the [place] in the last 14 days. At this time, the client does not indicate any symptoms associated with coronavirus-19. Ebola Screen: Patient denies travel to an Ebola-affected area in the 21 days before illness onset. 09:11 Method Of Arrival: Ambulatory ll1 09:13 Initial Sepsis Screen: Does the patient meet any 2 criteria? No. Patient's initial ll1 sepsis screen is negative. Does the patient have a suspected source of infection? No. Patient's initial sepsis screen is negative. Risk Assessment: Do you want to hurt yourself or someone else? Patient reports no desire to harm self or others. Onset of symptoms was November 28, 2024. 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 - Infectious Disease History:: Denies. - Social history:: Smoking status: Patient reports the use of cigarette tobacco products, smokes one-half pack cigarettes per day. - Family history:: not pertinent. Screenin:16 [facility] ED Fall Risk Assessment (Adult) History of falling in the last 3 months, kb4 including since admission No falls in past 3 months (0 pts) Confusion or Disorientation No (0 pts) Intoxicated or Sedated No (0 pts) Impaired Gait No (0 pts) Mobility Assist Device Used No (0 pt) Altered Elimination No (0 pt) Score/Fall Risk Level 0 - 2 = Low Risk. Abuse screen: Denies threats or abuse. Denies injuries from another. Nutritional screening: No deficits noted. Tuberculosis screening: No symptoms or risk factors identified. Assessment: 09:05 Pain: Complains of pain in buttocks Pain currently is 10 out of 10 on a pain scale. kb4 09:05 General: Appears uncomfortable, Behavior is cooperative. Neuro: Level of Consciousness kb4 is awake, alert, obeys commands, Oriented to person, place, time, situation. Cardiovascular: Patient's skin is warm and dry. Pulses are all present. are 2+ in left radial artery. Respiratory: Airway is patent Respiratory effort is even, unlabored, Respiratory pattern is regular, symmetrical. GI: Abdomen is round Rectal exam: Hemorrhoids noted, hemorrhoid do not appear inflamed, red or bleeding at this time Last BM was November 28, 2024. Bowel sounds present X 4 quads. Abd is soft and non tender X 4 quads. Reports diarrhea, rectal bleeding, hemorrhoids, nausea, vomiting, since x3days. : No signs and/or symptoms were reported regarding the genitourinary system. EENT: No signs and/or symptoms were reported regarding the EENT system. Derm: Skin is pink, warm \T\ dry. Musculoskeletal: No signs and/or symptoms reported regarding the musculoskeletal system. Vital Signs: 09:11 BP 139 / 82; Pulse 82; Resp 17; Temp 98.3; Pulse Ox 96% ; Weight 111.13 kg; Height 5 ll1 ft. 9 in. ; Pain 9/10; 09:11 Body Mass Index 36.18 (111.13 kg, 175.26 cm) ll1 09:11 Pain Scale: Adult ll1 ED Course: 08:53 Patient arrived in ED. im 08:54 Dallas Mccoy MD is Attending Physician. vy 09:05 Patient has correct armband on for positive identification. Placed in gown. Bed in low kb4 position. Call light in reach. Pulse ox on. NIBP on. 09:09 Nika Coronado, RN is Primary Nurse. aa5 09:11 Arm band placed on Patient placed in an exam room, on a stretcher. ll1 09:13 Triage completed. ll1 09:25 Missed attempt(s): 20 gauge in left antecubital area. Bleeding controlled, band aid bc6 applied, catheter tip intact. 09:30 PT-INR Sent. bc6 09:30 CMP Sent. bc6 09:31 Initial lab(s) drawn, by me, sent to lab. Inserted saline lock: 22 gauge in right bc6 antecubital area, using aseptic technique. Blood collected. Flushed with 10 mL NS. 10:36 Walter Rueda MD is Referral Physician. [facility] 11:34 Provided Education on: discharge instructions . ap3 11:34 No provider procedures requiring assistance completed. IV discontinued, intact, ap3 bleeding controlled, No redness/swelling at site. Pressure dressing applied. Administered Medications: 09:39 Drug: NS 0.9% IV 1000 ml IV at 1000 ml once; to be given as a bolus over 60 minutes aa5 Route: IV; Rate: 1000 ml; Site: right antecubital; 11:31 Follow up: IV Status: Completed infusion; IV Intake: 1000ml ap3 11:31 Drug: Anusol-HC VA Suppository 25 mg 25 mg VA once Route: VA; ap3 11:34 Follow up: Response: Medication administered at discharge. ap3 Medication: 11:34 VIS not applicable for this client. ap3 Intake: 11:31 IV: 1000ml; Total: 1000ml. ap3 Outcome: 10:17 Condition: stable kb4 10:37 Discharge ordered by . [facility] 11:34 Discharged to home ambulatory, ap3 11:34 Discharge instructions given to patient, Instructed on discharge instructions, follow up and referral plans. medication usage, Demonstrated understanding of instructions, follow-up care, medications, Prescriptions given X 3, 11:35 Patient left the ED. ap3 Signatures: Dallas Mccoy MD MD cha Calderon, Audri, RN RN aa5 Lety Elliott RN RN ap3 Hina Kwong RN RN ll1 Shari Hutchinson bc6 Marcella Canas Kayla RN RN kb4 Corrections: (The following items were deleted from the chart) 10:32 10:15 Pain: Complains of pain in buttocks Pain currently is 10 out of 10 on a pain kb4 scale. kb4
[2024-11-30] MEDS ORDERED: HYDROCORTISONE ACETATE 25MG SUPP PR ONE (11:00)
[2024-11-30 13:39] VITALS: BP 139/82; TEMP 98.3; O2SAT 96
== END 2024-11-30 11:35 | disposition home or self-care (01) ==
LOC: ER 08:49
DX: K64.4 Residual hemorrhoidal skin tags (principal); K59.00 Constipation, unspecified; F17.210 Nicotine dependence, cigarettes, uncomplicated
CPT/HCPCS: 96361; 85025; 36415; 85610; 80053; 96360; 99284; J7030